=== PATIENT | female | born 1970 | race Caucasian/White ===

== ENCOUNTER 2018-09-25 10:49 | Emergency (ER) | payer MEDICARE, OTHER ==
[2018-09-25 12:23] LABS: Urine Appearance Cloudy; Urine Bacteria 1+ (Absent); Urine Bilirubin Negative (Negative); Urine Blood 1+ (Negative); Urine Color Yellow; Urine Glucose 1+(50 mg/dL) (Negative); Urine Ketones Negative (Negative); Urine Nitrite Negative (Negative); Urine Protein 2+(100 mg/dL) (Negative); Urine Red Blood Cell 1+(3-5/hpf) (Absent); Urine Specific Gravity 1.005 (1.010-1.030); Urine Squamous Epithelial Cell Present (Absent); Urine Urobilinogen Negative (Negative); Urine White Blood Cell 3+(>20/hpf) (Absent)
[2018-09-25 13:03] VITALS: BP 146/84
--- NOTE | 2018-09-25 13:59 | ED ---
GI/ HPI - HPI Summary HPI Summary: Patient is a 48-year-old female who presents to the ED with symptoms of a UTI. She states she has had UTIs in the past and this feels similar. She does not endorse a lot of pain, (states this is normal for her) she does endorse frequency and urgency. Denies any back pain, however has been endorsing some chills. She denies any fevers or sweats. Patient is wheelchair-bound. She states she's had some kidney issues recently, but has close follow-up with her PCP and is only here for her UTI symptoms. She denies any gross hematuria. - History of Current Complaint Chief Complaint: EDUrogenitalProblems Time Seen by Provider: 09/25/18 11:16 Stated Complaint: I THINK I HAVE BLADDER INFECTION PER PT Hx Obtained From: Patient Onset/Duration: Started Hours Ago Timing: Constant Severity: Moderate Current Severity: Moderate Pain Intensity: 0 Associated Signs and Symptoms: Positive: Negative Aggravating Factor(s): Voiding Alleviating Factor(s): Nothing - Allergy/Home Medications Allergies/Adverse Reactions: Allergies Allergy/AdvReac Type Severity Reaction Status Date / Time peanut Allergy Severe Anaphylatic Verified 09/25/18 11:40 Shock clarithromycin [From Biaxin] Allergy Anaphylatic Verified 09/25/18 11:39 Shock morphine Allergy Altered Verified 09/25/18 11:39 Mental Status Home Medications: Home Medications Atenolol 09/25/18 [History] Simvastatin (NF) [Zocor (NF)] 09/25/18 [History] PMH/Surg Hx/FS Hx/Imm Hx Previously Healthy: Yes Endocrine/Hematology History: Reports: Hx Diabetes - diet controlled Cardiovascular History: Reports: Hx Hypertension Respiratory History: Reports: Hx Seasonal Allergies Denies: Hx Asthma, Hx Chronic Bronchitis, Hx Pneumonia History: Reports: Hx Renal Disease Musculoskeletal History: Reports: Other Musculoskeletal History - 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 Negative: burning, dysuria, discharge, flank pain, hematuria, incontinence, pain Musculoskeletal: Negative Neurological: Negative All Other Systems Reviewed And Are Negative: Yes Physical Exam Triage Information Reviewed: Yes Vital Signs On Initial Exam: Initial Vitals Temp Pulse Resp BP Pulse Ox 98.4 F 93 16 154/85 98 09/25/18 10:50 09/25/18 10:50 09/25/18 10:50 09/25/18 10:50 09/25/18 10:50 Vital Signs Reviewed: Yes Appearance: Positive: Well-Appearing, Well-Nourished Skin: Positive: Warm, Skin Color Reflects Adequate Perfusion Head/Face: Positive: Normal Head/Face Inspection Eyes: Positive: EOMI, Conjunctiva Clear Neck: Positive: Supple, No Lymphadenopathy Respiratory/Lung Sounds: Positive: Clear to Auscultation, Breath Sounds Present Cardiovascular: Positive: RRR, Pulses are Symmetrical in both Upper and Lower Extremities Musculoskeletal: Positive: Strength/ROM Intact Neurological: Positive: Speech Normal Psychiatric: Positive: Affect/Mood Appropriate Diagnostics - Vital Signs Vital Signs Temp Pulse Resp BP Pulse Ox 09/25/18 13:02 98.2 F 81 16 146/84 100 09/25/18 10:50 98.4 F 93 16 154/85 98 - Laboratory Lab Results: Lab Results 09/25/18 Range/Units 11:50 Urine Color Yellow Urine Appearance Cloudy Urine pH 6.0 (5-9) Ur Specific [place] 1.005 L (1.010-1.030) Urine Protein 2+(100 mg/dl) A (Negative) Urine Ketones Negative (Negative) Urine Blood 1+ A (Negative) Urine Nitrate Negative (Negative) Urine Bilirubin Negative (Negative) Urine Urobilinogen Negative (Negative) Ur Leukocyte Esterase 3+ A (Negative) Urine WBC (Auto) 3+(>20/hpf) A (Absent) Urine RBC (Auto) 1+(3-5/hpf) A (Absent) Ur Squamous Epith Cells Present A (Absent) Urine Bacteria 1+ A (Absent) Urine Glucose 1+(50 mg/dl) A (Negative) Lab Statement: Any lab studies that have been ordered have been reviewed, and results considered in the medical decision making process. GIGU Course/Dx - Course Course Of Treatment: Patient is evaluated for UTI symptoms of urgency and frequency. She denies any dysuria. Denies any gross hematuria. Denies any back pain. She does endorse some chills and intermittent labored the past 2 days, but denies any fevers or sweats. She states symptoms have been present times approximate 3-4 days and feels they may have been worsening. UA obtained which shows 3+ leukocytes and 3+ WBCs. Patient will be treated with ciprofloxacin per her request this is been effective in the past for the organisms that grew. She will be placed on ciprofloxacin twice daily 7 days. If patient needs a change to her medications, she is requesting a text message to her phone she is unable to hear her phone or use it otherwise. She was his understanding of return precautions. - Diagnoses Provider Diagnoses: UTI symptoms, UTI (urinary tract infection) Discharge - Sign-Out/Discharge Documenting (check all that apply): Patient Departure Patient Received Moderate/Deep Sedation with Procedure: No - Discharge Plan Condition: Stable Disposition: HOME Prescriptions: Ciprofloxacin TAB* [Cipro 500 MG TAB*] 500 mg PO BID #14 tab Patient Education Materials: Urinary Tract Infection in Women (ED) Referrals: Ghulam Francis MD [Primary Care Provider] - Additional Instructions: Cipro twice daily x 7 days start immediately today and again tonight as your second dose Please follow-up with urology as needed If you develop any fevers, sweats, chills despite the antibiotic, return to the ED immediately - Billing Disposition and Condition Condition: STABLE Disposition: Home
== END 2018-09-25 13:02 | disposition home or self-care (01) ==
LOC: ED 10:49
DX: N39.0 Urinary tract infection, site not specified (principal); Z87.440 Personal history of urinary (tract) infections; E11.9 Type 2 diabetes mellitus without complications; Z88.1 Allergy status to other antibiotic agents; Z88.5 Allergy status to narcotic agent; Z91.010 Allergy to peanuts; Z87.891 Personal history of nicotine dependence
CPT/HCPCS: 81003; 81015; 87086; 99282

== ENCOUNTER 2021-10-17 14:41 | Inpatient (IN) ==
[2021-10-17 15:30] LABS: ABS Lymphocytes 0.9 10^3/ul (1.0-4.8); ABS Monocytes 0.6 10^3/ul (0-0.8); ABS Neutrophils 10.7 10^3/ul (1.5-7.7); Eosinophil % 0.2 %; Hematocrit 26 % (35-47); Hemoglobin 8.6 g/dL (12.0-16.0); Lymphocyte % 7.3 %; Mean Corpuscular HGB Conc 33 g/dL (31-36); Mean Corpuscular Hemoglobin 33 pg (27-31); Mean Corpuscular Volume 98 fL (80-97); Mean Platelet Volume 8.1 fL (7.4-10.4); Platelet Count 245 10^3/uL (150-450); Red Blood Count 2.64 10^6 /uL (3.70-4.87); Red Cell Distribution Width 13 % (10-15); White Blood Count 12.3 10^3/uL (3.5-10.8)
[2021-10-17 16:01] LABS: Urine Appearance Clear; Urine Bacteria Absent (Absent); Urine Bilirubin Negative (Negative); Urine Blood Negative (Negative); Urine Color Straw; Urine Glucose 1+(50 mg/dL) (Negative); Urine Ketones Negative (Negative); Urine Nitrite Negative (Negative); Urine Protein 1+(30 mg/dL) (Negative); Urine Red Blood Cell Absent (Absent); Urine Specific Gravity 1.008 (1.002-1.030); Urine Squamous Epithelial Cell Present (Absent); Urine Urobilinogen Negative (Negative); Urine White Blood Cell Absent (Absent)
[2021-10-17 16:05] LABS: Activated Partial Thrombo Time 24.5 seconds (26.0-38.0); INR 0.98 (0.86-1.15)
[2021-10-17 16:06] LABS: Albumin 4.1 g/dL (3.2-5.2); Albumin/Globulin Ratio 1.6 (1-3); C Reactive Protein 19.32 mg/L (<8.01); Calcium 8.8 mg/dL (8.6-10.3); Globulin 2.5 g/dL (2-4); Total Bilirubin 0.4 mg/dL (0.2-1.0); Total Protein 6.6 g/dL (6.4-8.9)
[2021-10-17 16:19] LABS: Potassium 5.3 mmol/L (3.5-5.0)
[2021-10-17] MEDS ORDERED: Ondansetron ODT 4 mg TAB 4 MG TAB SL ONE (19:48)
[2021-10-17] MEDS ORDERED: SODIUM ZIRCONIUM CYCLOSILICATE 5 GM PACKET PO ONE (23:00)
[2021-10-18] MEDS: Sodium Bicarb 650 mg (ANTACID) TAB PO SCH ×3 (00:27→21:35)
[2021-10-18] MEDS: Enoxaparin 30 MG/0.3 ML SYR SUBCUT SCH ×2 (00:27→21:37)
[2021-10-18 06:51] LABS: ABS Eosinophils 0.1 10^3/ul (0-0.6); ABS Monocytes 0.7 10^3/ul (0-0.8); ABS Neutrophils 4.1 10^3/ul (1.5-7.7); Eosinophil % 1.2 %; Hematocrit 23 % (35-47); Hemoglobin 7.9 g/dL (12.0-16.0); Lymphocyte % 28.6 %; Mean Corpuscular HGB Conc 34 g/dL (31-36); Mean Corpuscular Hemoglobin 34 pg (27-31); Mean Corpuscular Volume 99 fL (80-97); Mean Platelet Volume 8.8 fL (7.4-10.4); Platelet Count 232 10^3/uL (150-450); Red Blood Count 2.34 10^6 /uL (3.70-4.87); Red Cell Distribution Width 13 % (10-15)
[2021-10-18 07:21] LABS: C Reactive Protein 26.55 mg/L (<8.01); Calcium 8.4 mg/dL (8.6-10.3); eGFR CKD-EPI 18.3 (>60)
[2021-10-18 07:27] LABS: Potassium 5.4 mmol/L (3.5-5.0)
[2021-10-18] MEDS: SODIUM ZIRCONIUM CYCLOSILICATE 5 GM PACKET PO SCH (08:08)
[2021-10-19 06:37] LABS: ABS Eosinophils 0.1 10^3/ul (0-0.6); ABS Lymphocytes 2.3 10^3/ul (1.0-4.8); ABS Monocytes 0.8 10^3/ul (0-0.8); ABS Neutrophils 4.2 10^3/ul (1.5-7.7); Eosinophil % 1.5 %; Hematocrit 21 % (35-47); Hemoglobin 7.2 g/dL (12.0-16.0); Lymphocyte % 30.6 %; Mean Corpuscular HGB Conc 34 g/dL (31-36); Mean Corpuscular Hemoglobin 34 pg (27-31); Mean Corpuscular Volume 100 fL (80-97); Mean Platelet Volume 8.8 fL (7.4-10.4); Platelet Count 199 10^3/uL (150-450); Red Blood Count 2.09 10^6 /uL (3.70-4.87); Red Cell Distribution Width 13 % (10-15); White Blood Count 7.4 10^3/uL (3.5-10.8)
[2021-10-19 07:05] LABS: Calcium 8.5 mg/dL (8.6-10.3); Magnesium 2.6 mg/dL (1.9-2.7)
[2021-10-19 07:06] LABS: Potassium 5.3 mmol/L (3.5-5.0)
[2021-10-19 07:10] LABS: eGFR CKD-EPI 10.8 (>60)
[2021-10-19] MEDS: Sodium Bicarb 650 mg (ANTACID) TAB PO SCH ×2 (09:06→21:50)
[2021-10-19] MEDS: SODIUM ZIRCONIUM CYCLOSILICATE 5 GM PACKET PO SCH (09:12)
[2021-10-19] MEDS: Enoxaparin 30 MG/0.3 ML SYR SUBCUT SCH (21:51)
[2021-10-20 06:42] LABS: ABS Eosinophils 0.2 10^3/ul (0-0.6); ABS Lymphocytes 1.7 10^3/ul (1.0-4.8); ABS Monocytes 0.6 10^3/ul (0-0.8); ABS Neutrophils 4.9 10^3/ul (1.5-7.7); Eosinophil % 3.2 %; Hematocrit 20 % (35-47); Hemoglobin 6.8 g/dL (12.0-16.0); Mean Corpuscular HGB Conc 34 g/dL (31-36); Mean Corpuscular Hemoglobin 34 pg (27-31); Mean Corpuscular Volume 100 fL (80-97); Mean Platelet Volume 9.1 fL (7.4-10.4); Platelet Count 184 10^3/uL (150-450); Red Blood Count 2.02 10^6 /uL (3.70-4.87); Red Cell Distribution Width 12 % (10-15); White Blood Count 7.5 10^3/uL (3.5-10.8)
[2021-10-20 06:59] LABS: Calcium 9.3 mg/dL (8.6-10.3); Magnesium 2.7 mg/dL (1.9-2.7); eGFR CKD-EPI 8.5 (>60)
[2021-10-20 07:00] LABS: Potassium 5.3 mmol/L (3.5-5.0)
[2021-10-20] MEDS ORDERED: Heparin 1,000 UNIT/ML 10 ml (10,000 UNITS) CATHLAB/DIALYSIS DIALYSIS PRN (09:16)
[2021-10-20 12:18] LABS: Hepatitis B Surface Antigen Nonreactive (Nonreactive)
[2021-10-20 12:23] LABS: Hepatitis B Core IgM Nonreactive (Nonreactive)
[2021-10-20 12:36] LABS: Hepatitis B Surface Ab Not Immune (Immune)
[2021-10-20 13:51] LABS: ABS Basophils 0.1 10^3/ul (0-0.2); ABS Eosinophils 0.3 10^3/ul (0-0.6); ABS Lymphocytes 2.2 10^3/ul (1.0-4.8); ABS Monocytes 0.7 10^3/ul (0-0.8); ABS Neutrophils 5.8 10^3/ul (1.5-7.7); Eosinophil % 3.8 %; Hematocrit 35 % (35-47); Hemoglobin 11.8 g/dL (12.0-16.0); Lymphocyte % 23.8 %; Mean Corpuscular HGB Conc 34 g/dL (31-36); Mean Corpuscular Hemoglobin 31 pg (27-31); Mean Corpuscular Volume 94 fL (80-97); Mean Platelet Volume 8.4 fL (7.4-10.4); Nucleated Red Blood Cells % 0.1; Platelet Count 237 10^3/uL (150-450); Red Blood Count 3.76 10^6 /uL (3.70-4.87); Red Cell Distribution Width 16 % (10-15); White Blood Count 9.1 10^3/uL (3.5-10.8)
[2021-10-20 14:01] LABS: Calcium 9.6 mg/dL (8.6-10.3)
[2021-10-20] MEDS: SODIUM ZIRCONIUM CYCLOSILICATE 5 GM PACKET PO SCH (14:46)
[2021-10-20] MEDS: Sodium Bicarb 650 mg (ANTACID) TAB PO SCH (15:03)
[2021-10-20] MEDS ORDERED: Senna TAB 8.6 mg TAB PO PRN (16:37)
[2021-10-20] MEDS ORDERED: Polyethylene Glycol 3350 17 GM PACKET PO PRN (16:37)
[2021-10-20] MEDS ORDERED: Magnesium Hydroxide LIQ 30 ML UDC PO PRN (16:37)
[2021-10-21 05:30] LABS: ABS Eosinophils 0.3 10^3/ul (0-0.6); ABS Lymphocytes 2.1 10^3/ul (1.0-4.8); ABS Monocytes 0.7 10^3/ul (0-0.8); ABS Neutrophils 4.8 10^3/ul (1.5-7.7); Eosinophil % 3.8 %; Hematocrit 29 % (35-47); Hemoglobin 10.3 g/dL (12.0-16.0); Lymphocyte % 26.7 %; Mean Corpuscular HGB Conc 36 g/dL (31-36); Mean Corpuscular Hemoglobin 34 pg (27-31); Mean Corpuscular Volume 93 fL (80-97); Mean Platelet Volume 8.8 fL (7.4-10.4); Platelet Count 193 10^3/uL (150-450); Red Blood Count 3.07 10^6 /uL (3.70-4.87); Red Cell Distribution Width 16 % (10-15); White Blood Count 7.9 10^3/uL (3.5-10.8)
[2021-10-21 05:51] LABS: Calcium 9.6 mg/dL (8.6-10.3); Magnesium 2.1 mg/dL (1.9-2.7); Potassium 4.9 mmol/L (3.5-5.0); eGFR CKD-EPI 15.8 (>60)
[2021-10-21 12:04] VITALS: BP 130/55
== END 2021-10-21 13:55 | disposition home or self-care (01) | DRG 91 ==
LOC: EDHOLD 14:41 → ED 14:41 → SUATTDRO 20:59 → MED 23:41
PROVIDERS: ADMIT Internal Medicine; ATTEND Student in an Organized Health Care Education/Training Program

== ENCOUNTER 2022-02-25 11:25 | Observation (INO) ==
[~2022-02-25 11:25] MED LIST: Acetaminophen IV 1 GM/100ML 1,000 MG/100 ML BAG IV ONE; Buffered Lidocaine 1% SYRIN 1 ml INTRADERM ONE; Famotidine IV 10 MG/ML 2 ml VIAL (20 mg) IV ONE; NS 0.9% 1000 ml BAG 1,000 ML IV SCH; Ondansetron 4 mg VIAL 2 MG/ML 2 ml VIAL IV PRN; Prochlorperazine 5 mg/ml 2 ml VIAL (10 mg) IV PRN; Scopolamine 1 mg/72hr PATCH TRANSDERM ONE; fentaNYL 100 mcg/2 ml 50 MCG/ML VIAL IV PRN
[2022-02-25 13:51] LABS: ABS Basophils 0.1 10^3/ul (0-0.2); ABS Eosinophils 0.2 10^3/ul (0-0.6); ABS Monocytes 0.4 10^3/ul (0-0.8); ABS Neutrophils 3.8 10^3/ul (1.5-7.7); Eosinophil % 3.5 %; Hematocrit 36 % (35-47); Hemoglobin 11.7 g/dL (12.0-16.0); Lymphocyte % 31.1 %; Mean Corpuscular HGB Conc 32 g/dL (31-36); Mean Corpuscular Hemoglobin 34 pg (27-31); Mean Corpuscular Volume 105 fL (80-97); Mean Platelet Volume 8.4 fL (7.4-10.4); Platelet Count 244 10^3/uL (150-450); Red Blood Count 3.47 10^6 /uL (3.70-4.87); Red Cell Distribution Width 13 % (10-15); White Blood Count 6.5 10^3/uL (3.5-10.8)
[2022-02-25 14:10] LABS: Blood Urea Nitrogen 87 mg/dL (6-24); CO2 Carbon Dioxide 23 mmol/L (22-32); Calcium 7.1 mg/dL (8.6-10.3); Chloride 104 mmol/L (101-111); Glucose 99 mg/dL (70-100); Sodium 141 mmol/L (135-145); eGFR CKD-EPI 15.8 (>60)
[2022-02-25 14:14] LABS: Anion Gap 14 mmol/L (2-11)
[2022-02-25] MEDS ORDERED: Heparin *DIALYSIS* ONLY 1,000 UNITS/ML VIAL ONE (15:39)
[2022-02-25] MEDS ORDERED: Bupivacaine 0.25% SDV 30 ML ONE (15:39)
[2022-02-25 15:47] LABS: Potassium, Whole Blood 5.2 mmol/L (3.4-4.5)
[2022-02-25] MEDS ORDERED: Famotidine IV 10 MG/ML 2 ml VIAL (20 mg) ONE (18:23)
[2022-02-25] MEDS ORDERED: ceFAZolin 2 GM in NS PREMIX 2 GM/100 ML BAG IVPB ONE (18:23)
[2022-02-25] MEDS ORDERED: Scopolamine 1 mg/72hr PATCH ONE (18:23)
[2022-02-25] MEDS ORDERED: fentaNYL 100 mcg/2 ml 50 MCG/ML VIAL ONE (19:32)
[2022-02-25] MEDS ORDERED: Propofol 10 MG/ML 20 ML BTL ONE (19:32)
[2022-02-25] MEDS ORDERED: Lidocaine 2% PF 5 ML VIAL ONE (19:32)
[2022-02-25] MEDS ORDERED: Rocuronium 50 mg VIAL 10 mg/ml 5 ml VIAL (50 mg) ONE (19:32)
[2022-02-25] MEDS ORDERED: Ondansetron 4 mg VIAL 2 MG/ML 2 ml VIAL ONE (20:31)
[2022-02-25] MEDS ORDERED: Sugammadex 500 MG/5 ML 5 ml VIAL IV PUSH ONE (20:34)
[2022-02-25] MEDS: HYDROcodone/ACETAMIN 5/325 mg TAB PO PRN (23:33)
[2022-02-26] MEDS: HYDROcodone/ACETAMIN 5/325 mg TAB PO PRN (07:59)
[2022-02-26 09:06] LABS: Calcium 6.6 mg/dL (8.6-10.3)
[2022-02-26 09:12] LABS: eGFR CKD-EPI 12.2 (>60)
[2022-02-26 09:19] LABS: Potassium 5.5 mmol/L (3.5-5.0)
[2022-02-26 11:06] VITALS: BP 109/64
== END 2022-02-26 13:10 | disposition home or self-care (01) ==
LOC: OR 11:25 → SSU 21:42 → INTOOBSV 21:42
PROVIDERS: ADMIT Surgery; ATTEND Surgery

== ENCOUNTER 2023-10-25 15:27 | Inpatient (IN) ==
[2023-10-25 16:27] LABS: ABS Eosinophils 0.2 10^3/uL (0.0-0.5); ABS Lymphocytes 1.3 10^3/uL (1.0-4.8); ABS Monocytes 0.6 10^3/uL (0.0-0.9); ABS Neutrophils 7.6 10^3/uL (1.5-7.6); Eosinophil % 1.5 %; Hematocrit 30.2 % (35-45); Hemoglobin 10.4 g/dL (11.5-14.3); Lymphocyte % 13.7 %; Mean Corpuscular Hemoglobin 34.7 pg (27-33); Mean Corpuscular Hgb Conc 34.5 g/dL (31-36); Mean Corpuscular Volume 100.6 fL (80-97); Platelet Count 263 10^3/uL (150-450); Red Cell Distribution Width 13.8 % (12-17); White Blood Count 9.8 10^3/uL (3.8-11.8)
[2023-10-25 17:23] LABS: TSH Ultra Thyroid Stim Horm 0.96 mcIU/mL (0.34-5.60)
[2023-10-25 17:41] LABS: ALT 16 U/L (7-52); AST 15 U/L (13-39); Acetaminophen < 15 mcg/mL; Albumin 4.4 g/dL (3.2-5.2); Albumin/Globulin Ratio 1.5 (1-3); Alcohol, S < 13 mg/dL (<13); Alkaline Phosphatase 80 U/L (35-149); Anion Gap 14 mmol/L (2-16); Blood Urea Nitrogen 25 mg/dL (6-24); CO2 Carbon Dioxide 27 mmol/L (22-32); Calcium 8.8 mg/dL (8.6-10.3); Chloride 94 mmol/L (101-111); Creatinine, Serum 2.03 mg/dL (0.51-0.95); Globulin 2.9 g/dL (2-4); Glucose 263 mg/dL (70-100); Salicylate < 2.50 mg/dL (<30); Sodium 135 mmol/L (135-145); Total Bilirubin 0.3 mg/dL (0.2-1.0); Total Protein 7.3 g/dL (6.4-8.9); eGFR CKD-EPI 28.4 (>60)
[2023-10-25 22:47] LABS: Urine Appearance Clear; Urine Bilirubin Negative (Negative); Urine Blood Negative (Negative); Urine Color Colorless; Urine Glucose 3+ (>=300 mg/dL) (Negative); Urine Ketones Negative (Negative); Urine Nitrite Negative (Negative); Urine Protein 2+ (>=100 mg/dL) (Negative); Urine Specific Gravity 1.008 (1.002-1.030); Urine Urobilinogen Negative (Negative)
[2023-10-25 22:48] LABS: Urine Bacteria Absent /HPF (Absent); Urine Red Blood Cell Trace(0-2/hpf) /HPF (0-Trace); Urine White Blood Cell Trace(0-5/hpf) /HPF (0-Trace)
[2023-10-25 23:03] LABS: Urine Benzodiazepine Screen None Detected (None Detect); Urine Cannabinoids Screen None Detected (None Detect); Urine Opiates Screen None Detected (None Detect)
[2023-10-26] MEDS: Calcium Carb (TUMS) 500 mg CHEW TAB PO SCH (13:48)
[2023-10-26] MEDS ORDERED: NS 0.9% 1000 ml BAG 200 ML IV PRN (17:01)
[2023-10-26] MEDS ORDERED: NS 0.9% 1000 ml BAG 100 ML IV PRN (17:01)
[2023-10-26 23:35] LABS: Hepatitis B Surface Antigen Nonreactive (Nonreactive)
[2023-10-26 23:53] LABS: Hepatitis B Surface Ab Immune (Immune)
[2023-10-27] MEDS: Ondansetron ODT 4 mg TAB 4 MG TAB SL PRN (01:47)
[2023-10-27] MEDS: Heparin 1,000 UNIT/ML 10 ml (10,000 UNITS) CATHLAB/DIALYSIS DIALYSIS PRN (09:20)
[2023-10-27] MEDS: Albumin Human 25% 25 GM/100 ML BTL IV PRN (11:03)
[2023-10-28] MEDS: Ondansetron ODT 4 mg TAB 4 MG TAB SL ONE (13:09)
[2023-11-03 09:10] LABS: Hematocrit 31.2 % (35-45); Hemoglobin 10.3 g/dL (11.5-14.3); Mean Corpuscular Hemoglobin 34.6 pg (27-33); Mean Corpuscular Hgb Conc 33.2 g/dL (31-36); Mean Corpuscular Volume 104.3 fL (80-97); Mean Platelet Volume 7.9 fL (7.5-11.2); Platelet Count 278 10^3/uL (150-450); Red Blood Count 2.99 10^6/uL (3.63-4.92); Red Cell Distribution Width 14.3 % (12-17); White Blood Count 7.7 10^3/uL (3.8-11.8)
[2023-11-03 09:26] LABS: Calcium 9.3 mg/dL (8.6-10.3); Creatinine, Serum 6.38 mg/dL (0.51-0.95); Magnesium 2.3 mg/dL (1.9-2.7); Phosphorus 7.2 mg/dL (2.5-5.0); Potassium 5.1 mmol/L (3.5-5.0); eGFR CKD-EPI 7.2 (>60)
[2023-11-05] MEDS: Dextran 70/Hypromellose Tears Eye Drops 15 ml BTL (for Artificials Tears) RIGHT EYE PRN (18:09)
[2023-11-07] MEDS: Amoxicillin/Clavul 250/125 TAB (Augmentin 250 TAB) PO SCH (17:13)
[2023-11-08 11:12] LABS: ABS Eosinophils 0.2 10^3/uL (0.0-0.5); ABS Lymphocytes 1.2 10^3/uL (1.0-4.8); ABS Monocytes 0.5 10^3/uL (0.0-0.9); ABS Neutrophils 6.7 10^3/uL (1.5-7.6); Eosinophil % 2.6 %; Hematocrit 28.5 % (35-45); Hemoglobin 9.7 g/dL (11.5-14.3); Lymphocyte % 13.9 %; Mean Corpuscular Hemoglobin 35.2 pg (27-33); Mean Corpuscular Volume 103.4 fL (80-97); Mean Platelet Volume 8.3 fL (7.5-11.2); Platelet Count 214 10^3/uL (150-450); Red Blood Count 2.76 10^6/uL (3.63-4.92); Red Cell Distribution Width 13.9 % (12-17); White Blood Count 8.6 10^3/uL (3.8-11.8)
[2023-11-08] MEDS: HYDROcodone/ACETAMIN 5/325 mg TAB PO PRN (18:31)
[2023-11-10 10:13] LABS: Creatinine, Serum 6.74 mg/dL (0.51-0.95); Phosphorus 7.5 mg/dL (2.5-5.0); eGFR CKD-EPI 6.7 (>60)
[2023-11-15 09:40] LABS: Blood Urea Nitrogen > 120 mg/dL (6-24)
[2023-11-15 10:19] LABS: Anion Gap 19 mmol/L (2-16); CO2 Carbon Dioxide 19 mmol/L (22-32); Chloride 98 mmol/L (101-111); Creatinine, Serum 7.56 mg/dL (0.51-0.95); Glucose 187 mg/dL (70-100); Potassium 6.5 mmol/L (3.5-5.0); Sodium 136 mmol/L (135-145); eGFR CKD-EPI 5.9 (>60)
[2023-11-16] MEDS: SODIUM ZIRCONIUM CYCLOSILICATE 10 GM PACKET PO SCH (09:58)
[2023-11-16] MEDS ORDERED: Dextran 70/Hypromellose Tears Eye Drops 15 ml BTL (for Artificials Tears) BOTH EYES PRN (19:20)
[2023-11-17 09:12] LABS: Hematocrit 28.2 % (35-45); Hemoglobin 9.5 g/dL (11.5-14.3); Mean Corpuscular Hemoglobin 34.6 pg (27-33); Mean Corpuscular Hgb Conc 33.6 g/dL (31-36); Mean Corpuscular Volume 103.1 fL (80-97); Platelet Count 266 10^3/uL (150-450); Red Blood Count 2.73 10^6/uL (3.63-4.92); Red Cell Distribution Width 13.5 % (12-17); White Blood Count 8.6 10^3/uL (3.8-11.8)
[2023-11-17 10:13] LABS: Calcium 9.6 mg/dL (8.6-10.3); Creatinine, Serum 5.64 mg/dL (0.51-0.95); Potassium 5.3 mmol/L (3.5-5.0); eGFR CKD-EPI 8.3 (>60)
[2023-11-18] MEDS: Al Hydrox/Mg Hydrox/Simet LIQ 30 ML UDC PO PRN (19:17)
[2023-11-19] MEDS: Polyethylene Glycol 3350 17 GM PACKET PO SCH (14:29)
[2023-11-21] MEDS ORDERED: NS 0.9% 1000 ml BAG 100 ML IV PRN (12:11)
[2023-11-21] MEDS ORDERED: NS 0.9% 1000 ml BAG 200 ML IV PRN (12:11)
[2023-11-22] MEDS ORDERED: Polyethylene Glycol 3350 17 GM PACKET PO PRN (05:07)
[2023-11-22] MEDS: Heparin 1,000 UNIT/ML 10 ml (10,000 UNITS) CATHLAB/DIALYSIS DIALYSIS PRN (08:53)
[2023-11-24 11:10] LABS: Calcium 10.6 mg/dL (8.6-10.3); Creatinine, Serum 4.73 mg/dL (0.51-0.95); Potassium 5.3 mmol/L (3.5-5.0); eGFR CKD-EPI 10.3 (>60)
[2023-11-24] MEDS: Albumin Human 25% 25 GM/100 ML BTL IV PRN (11:20)
[2023-11-24] MEDS ORDERED: Saline NASAL DROPS 0.65% BTL BOTH NARES PRN (22:24)
[2023-11-25] MEDS: Oxymetazoline 0.05% NASAL SPR 15 ML BTL BOTH NARES SCH (12:55)
[2023-11-26 09:09] LABS: ABS Basophils 0.1 10^3/uL (0.0-0.1); ABS Eosinophils 0.3 10^3/uL (0.0-0.5); ABS Lymphocytes 1.7 10^3/uL (1.0-4.8); ABS Monocytes 0.4 10^3/uL (0.0-0.9); ABS Neutrophils 5.4 10^3/uL (1.5-7.6); Eosinophil % 3.8 %; Hematocrit 24.5 % (35-45); Hemoglobin 8.4 g/dL (11.5-14.3); Lymphocyte % 21.8 %; Mean Corpuscular Hemoglobin 35.1 pg (27-33); Mean Corpuscular Hgb Conc 34.4 g/dL (31-36); Mean Corpuscular Volume 102.2 fL (80-97); Mean Platelet Volume 7.9 fL (7.5-11.2); Platelet Count 219 10^3/uL (150-450); Red Blood Count 2.39 10^6/uL (3.63-4.92); Red Cell Distribution Width 13.5 % (12-17); White Blood Count 7.9 10^3/uL (3.8-11.8)
[2023-11-26 10:40] LABS: Hepatitis B Surface Antigen Nonreactive (Nonreactive)
[2023-11-26 10:57] LABS: Hepatitis B Surface Ab Immune (Immune)
[2023-11-27 12:29] LABS: Urine Appearance Clear; Urine Bilirubin Negative (Negative); Urine Blood Negative (Negative); Urine Color Colorless; Urine Glucose 3+ (>=300 mg/dL) (Negative); Urine Ketones Negative (Negative); Urine Nitrite Negative (Negative); Urine Protein 2+ (>=100 mg/dL) (Negative); Urine Specific Gravity 1.009 (1.002-1.030); Urine Urobilinogen Negative (Negative)
[2023-11-27 12:42] LABS: Urine Bacteria Absent /HPF (Absent); Urine Red Blood Cell Absent /HPF (0-Trace); Urine Squamous Epithelial Cell Present /HPF (Absent); Urine White Blood Cell Trace(0-5/hpf) /HPF (0-Trace)
[2023-11-29] MEDS ORDERED: Atropine 1% (ORAL/SL) 15 ML BTL SL PRN (15:08)
[2023-11-29] MEDS ORDERED: Morphine ORAL CONCENTRATE 5 MG/0.25 ML ORAL.SYRIN SL PRN (15:08)
[2023-11-29] MEDS: fentaNYL PATCH 12 MCG/HR 1 PATCH TRANSDERM SCH (20:22)
[2023-11-29] MEDS: fentaNYL Patch Check Q Shift NOTE FOLLOW UP SCH (20:25)
[2023-11-29] MEDS: Senna TAB 8.6 mg TAB PO SCH (20:30)
[2023-11-30] MEDS: Morphine ORAL CONCENTRATE 5 MG/0.25 ML ORAL.SYRIN SL PRN (08:37)
[2023-11-30] MEDS: CMCS: diPHENhydraMINE CREAM 2%(NF) 28 gm TUBE TOPICAL PRN (15:55)
[2023-11-30 17:34] VITALS: BP 131/54
== END 2023-12-02 14:40 | disposition expired | DRG 881 ==
LOC: ED 15:27 → EDHOLD 10-26 09:59 → BSU 10-26 10:09 → MED 11-29 15:59
PROVIDERS: ADMIT Psychiatry & Neurology Psychiatry; ATTEND Internal Medicine